=== PATIENT | female | born 1940 | race Caucasian/White ===

== ENCOUNTER → 2017-05-12 | Outpatient (CLI) | payer OTHER, MEDICARE ==
[~2017-05-12] MED LIST: ACTOS45 MG PO; ASPIRIN81 M1 PO; BUSPAR5 MG PO; CLONAZEPAM0.25 MG PO; CORGARD40 MG PO; GLIMEPIRIDE2 MG PO; ZESTRIL,PRINIVI10 MG PO; ZOCOR40 MG PO
== END ==
LOC: RAD 08:14
DX: K59.00 Constipation, unspecified (principal); R60.9 Edema, unspecified; J90 Pleural effusion, not elsewhere classified; J98.11 Atelectasis; Z90.89 Acquired absence of other organs; R93.5 Abnormal findings on diagnostic imaging of other abdominal regions, including retroperitoneum; R10.9 Unspecified abdominal pain; Z85.89 Personal history of malignant neoplasm of other organs and systems
CPT/HCPCS: 74176